=== PATIENT | female | born 1950 | race Caucasian/White ===

== ENCOUNTER → 2017-08-04 | Outpatient (CLI) | payer MEDICARE, OTHER ==
[~2017-08-04] MED LIST: ALBU3IS INH; ALBU90OI INH; ALBU90OI61 INH; BUDE6HFA INH; CARV25 PO; CARV6.25 PO; CETI10 PO; CHLO4 PO; CITA20 PO; CYCL10 PO; ESTR2 PO; FLUC100 PO; FURO40 PO; FURO80 PO; GABA300 PO; LEVO750 PO; LISI20 PO; LISI5 PO; LORA1 PO; META800 PO; OMEP20ER PO; OXYACE5T PO; POTA10T PO; POTCHL20ER PO; PREG50 PO; Percocet 10-321 EACH PO; RANI150 PO; SIMV40 PO; Ventolin Soln3 ML INH; ZOLP10 PO
== END | disposition home or self-care (01) ==
LOC: LAB 16:55
DX: R44.3 Hallucinations, unspecified (principal); R31.9 Hematuria, unspecified
CPT/HCPCS: 87086

== ENCOUNTER 2017-08-19 13:30 | Day surgery (SDC) | payer MEDICARE, OTHER ==
[~2017-08-19] VITALS: Ht 157.5 cm; Wt 64.9 kg
== END 2017-08-19 15:50 | disposition home or self-care (01) ==
LOC: ORSCSDS 13:30
PROVIDERS: Internal Medicine Gastroenterology
PROC: 0DJD8ZZ Inspection of Lower Intestinal Tract, Via Natural or Artificial Opening Endoscopic (ICD-10-PCS; principal; 2017-08-19 14:45)
DX: Z12.11 Encounter for screening for malignant neoplasm of colon (principal); K64.4 Residual hemorrhoidal skin tags; K57.30 Diverticulosis of large intestine without perforation or abscess without bleeding; I10 Essential (primary) hypertension; E78.5 Hyperlipidemia, unspecified; J45.909 Unspecified asthma, uncomplicated; Z86.010 Personal history of colon polyps; Z79.899 Other long term (current) drug therapy

== ENCOUNTER 2018-01-04 08:41 | Day surgery (SDC) | payer MEDICARE, OTHER ==
[~2018-01-04] VITALS: Ht 157.5 cm; Wt 62.5 kg
== END 2018-01-04 10:50 | disposition home or self-care (01) ==
LOC: ORSCSDS 08:41
PROVIDERS: Internal Medicine Gastroenterology
PROC: 0DB68ZX Excision of Stomach, Via Natural or Artificial Opening Endoscopic, Diagnostic (ICD-10-PCS; principal; 2018-01-04 10:00)
PROC: 0D757ZZ Dilation of Esophagus, Via Natural or Artificial Opening (ICD-10-PCS; principal; 2018-01-04 10:00)
PROC: 0DB58ZX Excision of Esophagus, Via Natural or Artificial Opening Endoscopic, Diagnostic (ICD-10-PCS; principal; 2018-01-04 10:00)
DX: R13.10 Dysphagia, unspecified (principal); K21.9 Gastro-esophageal reflux disease without esophagitis; K29.70 Gastritis, unspecified, without bleeding; K25.9 Gastric ulcer, unspecified as acute or chronic, without hemorrhage or perforation; I50.9 Heart failure, unspecified; Z79.899 Other long term (current) drug therapy
CPT/HCPCS: 88305; 88342; J7120

== ENCOUNTER 2018-09-04 11:26 | Inpatient (IN) | payer MEDICARE, OTHER ==
[~2018-09-04] VITALS: Ht 152.4 cm; Wt 73.1 kg
[~2018-09-04 11:26] MED LIST changes: -OMEP20ER PO; +OMEPRAZOLE MAGN20 MG PO
[2018-09-04 12:33] LABS: BASOPHILS ABSOLUTE AUTO 0.02 K/mm3 (0.00-0.23); BASOPHILS PERCENT AUTO 0 % (0-2); EOSINOPHILS PERCENT AUTO 0 % (0-6); Hematocrit 38.1 % (33.0-51.0); Hemoglobin 11.8 g/dL (11.5-16.0); IMMATURE GRAN ABSOLUTE AUTO 0.09 K/mm3 (0.00-0.10); IMMATURE GRAN PERCENT AUTO 1 % (0-1); LYMPHOCYTES ABSOLUTE AUTO 1.32 K/mm3 (0.84-5.20); LYMPHOCYTES PERCENT AUTO 12 % (21-46); MONOCYTES PERCENT AUTO 6 % (4-13); Mean Corpuscular Volume 97 fL (80-100); Mean Platelet Volume 9.3 fL (9.1-12.4); NEUTROPHILS ABSOLUTE AUTO 8.72 K/mm3 (1.96-9.15); NEUTROPHILS PERCENT AUTO 81 % (41-73); Platelet Count 334 K/mm3 (150-400); RDW Coefficient Variation 11.8 % (11.7-14.2); RDW Standard Deviation 42.5 fL (35.1-46.3); Red Blood Cell Count 3.93 M/mm3 (3.80-5.20); White Blood Cell Count 10.75 K/mm3 (4.00-11.30)
[2018-09-04 12:47] LABS: Alanine Aminotransfer (ALT/SGP 21 U/L (12-78); Albumin, Blood 3.4 g/dL (3.4-5.0); Albumin/Globulin Ratio 0.8 (0.8-1.8); Alk Phos 73 U/L (50-136); Anion Gap 4 mmol/L (6-16); Aspartate Aminotrans (AST/SGOT 15 U/L (12-37); Bilirubin, Total 0.2 mg/dL (0.1-1.0); Blood Urea Nitrogen 25 mg/dL (8-24); Bun/Creatinine Ratio 25.4 (12.0-20.0); CO2, Blood 38 mmol/L (21-32); Chloride, Blood 99 mmol/L (98-108); Creatinine, Blood 0.99 mg/dL (0.40-1.00); Globulin, Blood 4.4 g/dL (2.2-4.0); Glomerular Filtration Rate >60 (60-); Glucose, Blood 104 mg/dL (70-99); Potassium, Blood 3.8 mmol/L (3.5-5.5); Sodium, Blood 141 mmol/L (136-145); Total Protein, Blood 7.8 g/dL (6.4-8.2)
[2018-09-04] MEDS ORDERED: MONT10T PO (13:25)
[2018-09-04] MEDS ORDERED: ALBU90OI61 INH (13:26)
[2018-09-04] MEDS ORDERED: Carvedilol12.5 MG PO (13:29)
[2018-09-04] MEDS ORDERED: BUDE6HFA INH (13:30)
[2018-09-04] MEDS ORDERED: NITR.8TP TOP (13:32)
[2018-09-04] MEDS ORDERED: Fentanyl1 EAC4 TOP (13:34)
[2018-09-04] MEDS ORDERED: ALLER-TEC D 5-1 EACH PO (13:35)
[2018-09-04] MEDS ORDERED: OXYC10TA19 PO (13:48)
[2018-09-04 13:57] LABS: Influenza A Negative (NEGATIVE); Influenza B Negative (NEGATIVE)
[2018-09-04 18:29] LABS: Adenovirus Not Detected (NOT DETECT); Bordetella pertussis Not Detected (NOT DETECT); Chlamydophila pneumoniae Not Detected (NOT DETECT); Coronavirus 229E Not Detected (NOT DETECT); Coronavirus HKU1 Not Detected (NOT DETECT); Coronavirus NL63 Not Detected (NOT DETECT); Coronavirus OC43 Not Detected (NOT DETECT); Human Metapneumovirus Not Detected (NOT DETECT); Human Rhinovirus/Enterovirus Not Detected (NOT DETECT); Influenza A Not Detected (NOT DETECT); Influenza A/2009-H1 Not Detected (NOT DETECT); Influenza A/H1 Not Detected (NOT DETECT); Influenza A/H3 Not Detected (NOT DETECT); Influenza B Not Detected (NOT DETECT); Mycoplasma pneumoniae Not Detected (NOT DETECT); Parainfluenza Virus 1 Not Detected (NOT DETECT); Parainfluenza Virus 2 Not Detected (NOT DETECT); Parainfluenza Virus 3 Not Detected (NOT DETECT); Parainfluenza Virus 4 Not Detected (NOT DETECT); Respiratory Syncytial Virus Detected (NOT DETECT)
--- NOTE | 2018-09-05 04:35 | NUR ---
SHIFT SUMMARY NO CHANGES THIS SHIFT. PT HAS RESTED ON AND OFF T/O THE NIGHT. SPENDS ALOT OF HER TIME LISTENING TO HER AUDIO BOOKS. SHE DENIES NEEDS FOR MOST OF THE NIGHT. MEDICATED X1 FOR CHRONIC BACK PAIN. PT REPORTS RELIEF. PT UP TO THE BATHROOM WITH 1 PA ASSIST. SHE IS LEGALLY BLIND BUT REPORTS THAT SHE IS ABLE TO MAKE OUT SHAPES. 4L O2 IN PLACE. LUNGS WITH WHEEZES T/O. RSV POSITIVE. NB TREATMENTS AND SOLUMEDROL PER ORDERS. VITALS STABLE. PT A/OX4, PLESANT. WILL CONTINUE TO MONITOR AND REPORT TO ONCOMING RN.
--- NOTE | 2018-09-06 04:44 | NUR ---
SHIFT SUMMARY NO ACUTE CHANGES TO PRESENT THIS SHIFT. PT PLEASANT AND CO-OP FOR THE MOST PART. BECAME CONFUSED AFTER AMBIEN ADMINISTERED AND TOOK EFFECT. UP TO BTHRM THINKING SHE WAS IN THE SHOWER AND TOOK OFF ALL TELE MX LEADS. REPLACED AND ASSISTED PT BACK INTO BED. MEDICATED PER EMAR FOR C/O PAIN IN LOW BACK. PT LEGALLY BLIND, BUT REPORTED THAT SHE CAN SEE SHAPES AND GET AROUND. LUNGS T/O COARSE/BUT DIMINISHED WITH INSP WHEEZES THRU OUT. ABLE TO AMBULATE TO BTHRM AND BACK W/O O2 NC. ADMITTED FOR ACUTE RESPIRATORY FAILURE; IN DROPLET ISO FOR RSV. HAS CONTINUED TO DENY NEEDS. CALL LT IN REACH.
[2018-09-06] MEDS ORDERED: FLONASE ALLERG9.9 ML (15:30)
[2018-09-06] MEDS ORDERED: HYDPAM50 PO (15:31)
[2018-09-06] MEDS ORDERED: Motion Sickness25 M1 PO (15:32)
[2018-09-06] MEDS ORDERED: PRAZ1 PO (15:35)
--- NOTE | 2018-09-07 04:53 | NUR ---
SHIFT SUMMARY NO ACUTE CHANGES TO PRESENT THIS SHIFT. PT'S LUNGS T/O REMAIN VERY WHEEZY. PT STARTED ON GUAIFENESIN LAST NIGHT. REMAINS INDEPENDANT IN , THOUGH LEGALLY BLIND. ABLE TO COUNT STEPS AND FEEL HER WAY AROUND TO BTHRM. PLEASANT AND CO-OP WITH CARE. MEDICATED PER EMAR FOR CHRONIC LBP. IN DROPLET ISOLATION FOR RSV. CALL LT IN REACH.
[2018-09-07 05:19] LABS: BASOPHILS ABSOLUTE AUTO 0.01 K/mm3 (0.00-0.23); BASOPHILS PERCENT AUTO 0 % (0-2); EOSINOPHILS PERCENT AUTO 0 % (0-6); Hematocrit 35.5 % (33.0-51.0); Hemoglobin 11.1 g/dL (11.5-16.0); IMMATURE GRAN ABSOLUTE AUTO 0.17 K/mm3 (0.00-0.10); IMMATURE GRAN PERCENT AUTO 1 % (0-1); LYMPHOCYTES ABSOLUTE AUTO 0.53 K/mm3 (0.84-5.20); LYMPHOCYTES PERCENT AUTO 4 % (21-46); MONOCYTES ABSOLUTE AUTO 0.25 K/mm3 (0.16-1.47); MONOCYTES PERCENT AUTO 2 % (4-13); Mean Corpuscular HGB 29.6 pg (26.0-34.0); Mean Corpuscular HGB Conc 31.3 g/dL (31.5-36.5); Mean Corpuscular Volume 95 fL (80-100); Mean Platelet Volume 9.2 fL (9.1-12.4); NEUTROPHILS ABSOLUTE AUTO 11.26 K/mm3 (1.96-9.15); NEUTROPHILS PERCENT AUTO 92 % (41-73); Platelet Count 318 K/mm3 (150-400); RDW Coefficient Variation 11.9 % (11.7-14.2); RDW Standard Deviation 40.8 fL (35.1-46.3); Red Blood Cell Count 3.75 M/mm3 (3.80-5.20); White Blood Cell Count 12.22 K/mm3 (4.00-11.30)
[2018-09-07 05:59] LABS: Albumin, Blood 2.9 g/dL (3.4-5.0); Albumin/Globulin Ratio 0.8 (0.8-1.8); Bilirubin, Total 0.2 mg/dL (0.1-1.0); Bun/Creatinine Ratio 27.4 (12.0-20.0); Calcium, Blood 8.7 mg/dL (8.5-10.1); Creatinine, Blood 1.06 mg/dL (0.40-1.00); Globulin, Blood 3.6 g/dL (2.2-4.0); Total Protein, Blood 6.5 g/dL (6.4-8.2)
--- NOTE | 2018-09-08 04:24 | NUR ---
SHIFT SUMMARY NO ACUTE CHANGES. PT OVERALL FEELING BETTER. DENIES SOB. OCCASSIONAL HARSH NON PRODUCTIVE COUGH. PT IS LEGALLY BLIND, ABLE TO SEE SHAPES, BUT AMBULATES INDEPENDENTLY IN THE ROOM SAFELY. PT HAS CHRONIC BACK PN AND HAD HER MOST RECENT BACK SURGERY FOR DISC COMPRESSION THIS LAST JUNE. CHRONICALLY TAKES ROXICODONE 10 MG AT HOME. MEDICATED PER ORDERS AND REQUEST OF PATIENT. PT ON RA. HOPING TO DISCHARGE HOME SOON. VSS. WILL CONTINUE TO MONITOR.
[2018-09-08 05:13] LABS: BASOPHILS ABSOLUTE AUTO 0.01 K/mm3 (0.00-0.23); BASOPHILS PERCENT AUTO 0 % (0-2); EOSINOPHILS PERCENT AUTO 0 % (0-6); Hematocrit 35.1 % (33.0-51.0); IMMATURE GRAN ABSOLUTE AUTO 0.22 K/mm3 (0.00-0.10); IMMATURE GRAN PERCENT AUTO 2 % (0-1); LYMPHOCYTES ABSOLUTE AUTO 0.58 K/mm3 (0.84-5.20); LYMPHOCYTES PERCENT AUTO 5 % (21-46); MONOCYTES ABSOLUTE AUTO 0.29 K/mm3 (0.16-1.47); MONOCYTES PERCENT AUTO 2 % (4-13); Mean Corpuscular HGB 29.9 pg (26.0-34.0); Mean Corpuscular HGB Conc 31.3 g/dL (31.5-36.5); Mean Corpuscular Volume 95 fL (80-100); Mean Platelet Volume 9.3 fL (9.1-12.4); NEUTROPHILS ABSOLUTE AUTO 10.84 K/mm3 (1.96-9.15); NEUTROPHILS PERCENT AUTO 91 % (41-73); Platelet Count 301 K/mm3 (150-400); RDW Coefficient Variation 11.8 % (11.7-14.2); Red Blood Cell Count 3.68 M/mm3 (3.80-5.20); White Blood Cell Count 11.94 K/mm3 (4.00-11.30)
[2018-09-08 06:05] LABS: Anion Gap 8 mmol/L (6-16); Blood Urea Nitrogen 25 mg/dL (8-24); Bun/Creatinine Ratio 28.2 (12.0-20.0); CO2, Blood 32 mmol/L (21-32); Calcium, Blood 8.5 mg/dL (8.5-10.1); Chloride, Blood 98 mmol/L (98-108); Creatinine, Blood 0.89 mg/dL (0.40-1.00); Glomerular Filtration Rate >60 (60-); Glucose, Blood 152 mg/dL (70-99); Potassium, Blood 3.5 mmol/L (3.5-5.5); Sodium, Blood 138 mmol/L (136-145)
--- NOTE | 2018-09-08 17:19 | NUR ---
SHIFT SUMMARY PT HAS HAD NO ACUTE CHANGES THIS SHIFT, MEDICATED 1X FOR PAIN, NO OTHER COMPLAINTS OF ANY KIND. PT BEDRESTING AT THIS TIME, INDEP IN ROOM, WILL CONT TO MONITOR UNTIL REPORT GIVEN TO NOC RN.
--- NOTE | 2018-09-09 04:46 | NUR ---
SHIFT SUMMARY PT OVERALL FEELING MUCH BETTER. CONTINUES TO HAVE OCCASSIONAL NONPRODUCTIVE COUGH AND MILD SOB W/ EXERTION BUT ALSO CONTINUES TO IMPROVE. PT REMAINS INDEPENDENT IN THE ROOM AND AMBULATES WELL. CHRONIC BACK PAIN, MEDICATED PER EMAR. VSS. NO ACUTE CHANGES. WILL CONTINUE TO MONITOR AND REPORT TO DAY RN.
[2018-09-09] MEDS ORDERED: GUAI600T33 PO (11:23)
[2018-09-09] MEDS ORDERED: PRED10 PO (11:25)
[2018-09-09] MEDS ORDERED: AZIT250 PO (11:27)
--- NOTE | 2018-09-09 12:39 | NUR ---
SHIFT SUMMARY/DC PT HAS HAD NO ACUTE CHANGES THIS SHIFT, NO COMPLAINTS OF ANY KIND. SPOUSE AT BEDSIDE & T/O SHIFT. REVIEWED DC INSTRUCTIONS W/PT & SPOUSE, BOTH VERBALIZED UNDERSTANDING. PT TRANSPORTED VIA W/C TO DC IN PRIVATE VEHICLE @ 1150.
== END 2018-09-09 11:52 | disposition home or self-care (01) | DRG 189 ==
LOC: ER 11:26 → MEDS 15:24 → ENPENDDIS 09-09 11:07 → MEDS 09-09 11:52
PROVIDERS: Emergency Medicine; Internal Medicine; ADMIT Internal Medicine
DX: J96.01 Acute respiratory failure with hypoxia (principal); J45.901 Unspecified asthma with (acute) exacerbation; I50.22 Chronic systolic (congestive) heart failure; I42.0 Dilated cardiomyopathy; J21.0 Acute bronchiolitis due to respiratory syncytial virus; I11.0 Hypertensive heart disease with heart failure; K21.9 Gastro-esophageal reflux disease without esophagitis; G89.29 Other chronic pain; M54.9 Dorsalgia, unspecified; Z88.1 Allergy status to other antibiotic agents; Z88.5 Allergy status to narcotic agent; Z88.8 Allergy status to other drugs, medicaments and biological substances; Z79.899 Other long term (current) drug therapy
CPT/HCPCS: 36415; 71046; 80048; 80053; 83880; 84484; 85025; 87486; 87581; 87633; 87798; 87804; 93005; 93010; 94640; 94644; 94760; 96374; 96375; 99285-25; J0456; J1650; J2930; J3475; J7050

== ENCOUNTER 2018-11-01 11:38 | Day surgery (SDC) | payer MEDICARE, OTHER ==
[~2018-11-01] VITALS: Ht 154.9 cm; Wt 58.7 kg
[~2018-11-01 11:38] MED LIST changes: +ALLER-TEC D 5-1 EACH PO; +AZIT250 PO; +Carvedilol12.5 MG PO; +Coreg12.5 MG PO; +FLONASE ALLERG9.9 ML; +Fentanyl1 EAC4 TOP; +Fentanyl1 EACH TOP; +Flonase 0.05% N16 GM; +GABA100 PO; +GUAI600T33 PO; +HYDPAM50 PO; +K-Dur20 MEQ PO; +MONT10T PO; +MOTION RELIEF25 MG PO; +Motion Sickness25 M1 PO; +NITR.8TP TOP; +Nitroglycerin1 EAC3 TD; +OXYC10TA19 PO; +PRAZ1 PO; +PRED10 PO; +Percocet 5-3251 EACH PO; +VIT1CAPS12 PO; +ZOLP5 PO
--- NOTE | 2018-11-01 12:47 | NUR ---
11/01/18 1247 Anh Olguin FIRST ATTEMPT IN RH BY KOLE FAILED, INFILTRATED. SECOND ATTEMPT IN R FOREARM SUCCESSFUL.
== END 2018-11-01 15:23 | disposition home or self-care (01) ==
LOC: ORSCSDS 11:38
PROVIDERS: Internal Medicine Gastroenterology
PROC: 0DJ08ZZ Inspection of Upper Intestinal Tract, Via Natural or Artificial Opening Endoscopic (ICD-10-PCS; principal; 2018-11-01 13:00)
DX: K25.9 Gastric ulcer, unspecified as acute or chronic, without hemorrhage or perforation (principal); K44.9 Diaphragmatic hernia without obstruction or gangrene; I10 Essential (primary) hypertension; E78.5 Hyperlipidemia, unspecified; Z79.899 Other long term (current) drug therapy
CPT/HCPCS: J2704; J7120

== ENCOUNTER 2021-08-20 11:23 | Day surgery (SDC) | payer OTHER ==
[~2021-08-20] VITALS: Ht 154.9 cm; Wt 57.4 kg
== END 2021-08-20 15:17 | disposition home or self-care (01) ==
LOC: ORSCSDS 11:23
PROVIDERS: Internal Medicine Gastroenterology
PROC: 0DBL8ZX Excision of Transverse Colon, Via Natural or Artificial Opening Endoscopic, Diagnostic (ICD-10-PCS; principal; 2021-08-20 12:30)
PROC: 0DB78ZX Excision of Stomach, Pylorus, Via Natural or Artificial Opening Endoscopic, Diagnostic (ICD-10-PCS; principal; 2021-08-20 12:30)
PROC: 0DB98ZX Excision of Duodenum, Via Natural or Artificial Opening Endoscopic, Diagnostic (ICD-10-PCS; principal; 2021-08-20 12:30)
PROC: 0D757ZZ Dilation of Esophagus, Via Natural or Artificial Opening (ICD-10-PCS; principal; 2021-08-20 12:30)
DX: R13.10 Dysphagia, unspecified (principal); K22.2 Esophageal obstruction; R10.9 Unspecified abdominal pain; Z86.010 Personal history of colon polyps; D12.3 Benign neoplasm of transverse colon; K57.30 Diverticulosis of large intestine without perforation or abscess without bleeding; K64.8 Other hemorrhoids; J45.909 Unspecified asthma, uncomplicated; I50.9 Heart failure, unspecified; E78.5 Hyperlipidemia, unspecified; I10 Essential (primary) hypertension; Z79.899 Other long term (current) drug therapy
CPT/HCPCS: 88305; 88342; J2405; J2704; J7120

== ENCOUNTER → 2022-05-12 | Outpatient (CLI) | payer OTHER ==
[2022-05-12 14:44] LABS: BASOPHILS ABSOLUTE AUTO 0.01 K/mm3 (0.00-0.23); BASOPHILS PERCENT AUTO 0 % (0-2); EOSINOPHILS PERCENT AUTO 0 % (0-6); Hemoglobin 12.4 g/dL (11.5-16.0); IMMATURE GRAN ABSOLUTE AUTO 0.01 K/mm3 (0.00-0.10); IMMATURE GRAN PERCENT AUTO 0 % (0-1); LYMPHOCYTES ABSOLUTE AUTO 1.28 K/mm3 (0.84-5.20); LYMPHOCYTES PERCENT AUTO 18 % (21-46); MONOCYTES ABSOLUTE AUTO 0.77 K/mm3 (0.16-1.47); MONOCYTES PERCENT AUTO 11 % (4-13); Mean Corpuscular HGB 32.5 pg (26.0-34.0); Mean Corpuscular HGB Conc 33.5 g/dL (31.5-36.5); Mean Corpuscular Volume 97 fL (80-100); Mean Platelet Volume 9.5 fL (9.1-12.4); NEUTROPHILS ABSOLUTE AUTO 5.05 K/mm3 (1.96-9.15); NEUTROPHILS PERCENT AUTO 71 % (41-73); Platelet Count 232 K/mm3 (150-400); RDW Standard Deviation 46.7 fL (35.1-46.3); Red Blood Cell Count 3.81 M/mm3 (3.80-5.20); White Blood Cell Count 7.12 K/mm3 (4.00-11.30)
[2022-05-12 15:02] LABS: Albumin, Blood 3.7 g/dL (3.4-5.0); Bilirubin, Total 0.5 mg/dL (0.1-1.0); Bun/Creatinine Ratio 21.9 (12.0-20.0); Calcium, Blood 9.5 mg/dL (8.5-10.1); Creatinine, Blood 1.14 mg/dL (0.40-1.00); Globulin, Blood 3.8 g/dL (2.2-4.0); Potassium, Blood 3.5 mmol/L (3.5-5.5); Thyroid Stimulating Hormone 1.437 uIU/mL (0.360-4.800); Total Protein, Blood 7.5 g/dL (6.4-8.2)
== END | disposition home or self-care (01) ==
LOC: LAB SHORT 14:39 → LAB 14:39
PROVIDERS: Physician Assistant
DX: R11.0 Nausea (principal); R31.9 Hematuria, unspecified; R53.83 Other fatigue
CPT/HCPCS: 80053; 84443; 85025; 87086

== ENCOUNTER 2023-04-22 09:19 | Day surgery (SDC) | payer OTHER ==
[~2023-04-22] VITALS: Ht 154.9 cm; Wt 55.3 kg
[2023-04-22] MEDS ORDERED: ALLEGRA ALLERG180 MG PO (09:52)
[2023-04-22] MEDS ORDERED: Percocet 10-321 EACH PO (09:53)
[2023-04-22 11:45] VITALS: BP 126/69
== END 2023-04-22 11:47 | disposition home or self-care (01) ==
LOC: ORSCSDS 09:19
PROVIDERS: Internal Medicine Gastroenterology
PROC: 0DJD8ZZ Inspection of Lower Intestinal Tract, Via Natural or Artificial Opening Endoscopic (ICD-10-PCS; principal; 2023-04-22 10:30)
PROC: 0DB98ZX Excision of Duodenum, Via Natural or Artificial Opening Endoscopic, Diagnostic (ICD-10-PCS; principal; 2023-04-22 10:30)
PROC: 0D757ZZ Dilation of Esophagus, Via Natural or Artificial Opening (ICD-10-PCS; principal; 2023-04-22 10:30)
PROC: 0DB78ZX Excision of Stomach, Pylorus, Via Natural or Artificial Opening Endoscopic, Diagnostic (ICD-10-PCS; principal; 2023-04-22 10:30)
PROC: 0DB58ZX Excision of Esophagus, Via Natural or Artificial Opening Endoscopic, Diagnostic (ICD-10-PCS; principal; 2023-04-22 10:30)
DX: R10.13 Epigastric pain (principal); R63.4 Abnormal weight loss; R13.14 Dysphagia, pharyngoesophageal phase; Z79.899 Other long term (current) drug therapy; K62.5 Hemorrhage of anus and rectum; K57.30 Diverticulosis of large intestine without perforation or abscess without bleeding; K64.8 Other hemorrhoids; J45.909 Unspecified asthma, uncomplicated; E78.5 Hyperlipidemia, unspecified; Z98.84 Bariatric surgery status; I10 Essential (primary) hypertension
CPT/HCPCS: 88305; 88342; J2704; J7120

== ENCOUNTER 2024-11-15 14:01 | Day surgery (SDC) | payer OTHER ==
[~2024-11-15] VITALS: Ht 154.9 cm; Wt 43.0 kg
[~2024-11-15 14:01] MED LIST changes: +ALLEGRA ALLERG180 MG PO; +Atropine Sulfate 0.1 MG/ML 10ML SYR ONE; +Glycopyrrolate 0.2 MG/ML 1MLVIAL ONE; +Lactated Ringer's 1,000 ML IV ONE; +Lidocaine 2% 5 ML SDV ONE; +Lidocaine HCl/Pf 1% 5 ML VIAL ONE; +Methylene Blue 1% 100 MG/10 ML VIAL ONE; +Ondansetron HCl 2 MG / ML 2ML Vial ONE; +ePHEDrine Sulfate 50 MG/ML 1ML Injection ONE; +propofoL 50 ML IV ONE
[2024-11-15] MEDS ORDERED: Lactated Ringer's 1,000 ML IV ONE (14:30)
[2024-11-15 18:08] VITALS: BP 146/66
== END 2024-11-15 18:12 | disposition home or self-care (01) ==
LOC: ORSCSDS 14:01
PROVIDERS: Internal Medicine Gastroenterology
PROC: 0DB68ZX Excision of Stomach, Via Natural or Artificial Opening Endoscopic, Diagnostic (ICD-10-PCS; principal; 2024-11-15 15:30)
DX: R13.10 Dysphagia, unspecified (principal); R63.4 Abnormal weight loss; K21.9 Gastro-esophageal reflux disease without esophagitis; K29.70 Gastritis, unspecified, without bleeding; K59.00 Constipation, unspecified; Z79.899 Other long term (current) drug therapy
CPT/HCPCS: 88305; 88342; J0461; J2003; J2405; J2704; J7120; Q9968